=== PATIENT | male | born 1945 | race Caucasian/White ===

== ENCOUNTER 2019-10-07 23:26 | Emergency (ER) | payer MEDICARE, BC ==
[2019-10-08] MEDS ORDERED: Lidocaine 1% 10 ML MDV INJECT ONE (00:25)
[2019-10-08] MEDS ORDERED: Lidocaine 1% 10 ML MDV ONE (00:42)
--- NOTE | 2019-10-08 01:39 | EDM.PDOC ---
ED HPI GENERAL MEDICAL PROBLEM - General Chief Complaint: Laceration Stated Complaint: LACERATION Time Seen by Provider: 10/07/19 23:37 Source of Information: Reports: Patient, Other (Referring facility) History Limitations: Reports: No Limitations - History of Present Illness INITIAL COMMENTS - FREE TEXT/NARRATIVE: TRIAGE NOTE -- Pt presents to ER from [place] [facility] for laceration repair to left sanchez. Pt reports cutting leg on metal. Last Tdap 2019 As above. Patient was coming down a ladder and his anterior left leg came in contact with a sharp piece of metal causing a laceration about 4 inches long. Anterior left leg. Risk factors consist of chronic anticoagulation but bleeding has been frankly minimal. Patient received 2 g of Ancef IV prior to coming to this hospital by POV. At my request the wound had a sterile wet normal saline dressing placed. Patient has had no fever or any other symptom of acute medical illness. He denies any substantial discomfort though he seems to be something of a stoic individual. - Related Data Allergies Allergy/AdvReac Type Severity Reaction Status Date / Time prednisone Allergy Severe Change Verified 10/08/19 00:12 Mental Status Home Meds: Home Meds Albuterol Sulfate [Albuterol Sulfate Hfa] 2 puff INH BID 10/08/19 [History] Apixaban [Eliquis] 1 tab PO BID 10/08/19 [History] Aspirin 1 tab PO DAILY 10/08/19 [History] Fluticasone Propion/Salmeterol [Fluticasone-Salmeterol 250-50] 1 puff INH BID [History] Levothyroxine Sodium [Synthroid] 1 tab PO DAILY 10/08/19 [History] PEG 400/Hypromellose/Glycerin [Eye Drop Tears] 2 drop EYEBOTH BID PRN 10/08/19 [ History] Sulfamethoxazole/Trimethoprim [Bactrim Ds Tablet] 1 each PO BID #20 tablet 10/07 [Rx] atorvaSTATin Calcium [Atorvastatin Calcium] 1 tab PO DAILY 10/08/19 [History] cephALEXin [Keflex] 500 mg PO QID #40 capsule 10/08/19 [Rx] lisinopriL [Lisinopril] 1 tab PO DAILY 10/08/19 [History] Past Medical History HEENT History: Reports: Cataract, Other (See Below) Other HEENT History: reading glasses Cardiovascular History: Reports: High Cholesterol, Hypertension, Stents Respiratory History: Reports: COPD Musculoskeletal History: Reports: Arthritis Endocrine/Metabolic History: Reports: Hyperthyroidism - Past Surgical History HEENT Surgical History: Reports: Cataract Surgery Cardiovascular Surgical History: Reports: Coronary Artery Stent Other Cardiovascular Surgeries/Procedures: 1 stent 2013 Endocrine Surgical History: Reports: Thyroidectomy Musculoskeletal Surgical History: Reports: Arthroscopic Knee Social & Family History - Family History Family Medical History: Noncontributory - Tobacco Use Smoking Status *Q: Former Smoker Used Tobacco, but Quit: Yes Month/Year Tobacco Last Used: 05/2001 - Caffeine Use Caffeine Use: Reports: Coffee - Recreational Drug Use Recreational Drug Use: No ED ROS GENERAL - Review of Systems Review Of Systems: Comprehensive ROS is negative, except as noted in HPI. ED EXAM, SKIN/RASH Exam: See Below Exam Limited By: No Limitations General Appearance: Alert, WD/WN, No Apparent Distress Eye Exam: Bilateral Eye: EOMI, PERRL Ears: Normal External Exam Nose: Normal Inspection Throat/Mouth: Normal Inspection Head: Atraumatic, Normocephalic Neck: Normal Inspection, Supple Respiratory/Chest: No Respiratory Distress, Lungs Clear, Normal Breath Sounds Cardiovascular: Regular Rate, Rhythm, No Edema GI/Abdominal: Soft, Non-Tender Back Exam: Normal Inspection Extremities: Normal Inspection (Except as noted) Neurological: Alert, Oriented, Normal Cognition, No Motor/Sensory Deficits Psychiatric: Normal Affect, Normal Mood Skin: Warm, Dry, Intact (Except as described below) Comments: There is a deep longitudinal laceration anterior left leg. About 11 cm overall dimension. Site is about mcfp between ankle and knee. Wound is gaping to a certain extent. Anterior compartment muscles are visible. Good motor function is observed. Neurovascular tendon is intact. Minimal bleeding. No contamination. No foreign body. Deep fascia appears a bit ragged and fragmented. There is slight fraying of the anterior compartment muscles but otherwise intact. Course - Vital Signs Last Recorded V/S: Last Vital Signs Temp 36.6 C 10/07/19 23:33 Pulse 92 10/07/19 23:33 Resp 20 10/07/19 23:33 BP 159/99 H 10/07/19 23:33 Pulse Ox 95 10/07/19 23:33 - Orders/Labs/Meds Orders: Active Orders 24 hr Category Date Time Status CBC WITH MANUAL DIFF [HEME] Stat Lab 10/08/19 01:59 Results Labs: Laboratory Tests 10/08/19 10/08/19 Range/Units 01:59 01:59 WBC 10.15 H (4.23-9.07) K/mm3 RBC 3.83 L (4.63-6.08) M/mm3 Hgb 12.2 L (13.7-17.5) gm/dl Hct 39.3 L (40.1-51.0) % MCV 102.6 H (79.0-92.2) fl MCH 31.9 (25.7-32.2) pg MCHC 31.0 L (32.2-35.5) g/dl RDW Std Deviation 48.3 H (35.1-43.9) fL Plt Count 244 (163-337) K/mm3 MPV 9.2 L (9.4-12.3) fl Sodium 143 (136-145) mEq/L Potassium 4.1 (3.5-5.1) mEq/L Chloride 107 (98-107) mEq/L Carbon Dioxide 30 (21-32) mEq/L Anion Gap 10.1 (5-15) BUN 20 H (7-18) mg/dL Creatinine 1.3 (0.7-1.3) mg/dL Est Cr Clr Drug Dosing 53.06 mL/min Estimated GFR (MDRD) 54 (>60) mL/min BUN/Creatinine Ratio 15.4 (14-18) Glucose 96 (83-115) mg/dL Calcium 9.0 (8.5-10.1) mg/dL Total Bilirubin 0.7 (0.2-1.0) mg/dL AST 24 (15-37) U/L ALT 26 (16-63) U/L Alkaline Phosphatase 83 (46-116) U/L Total Protein 7.1 (6.4-8.2) g/dl Albumin 3.8 (3.4-5.0) g/dl Globulin 3.3 gm/dL Albumin/Globulin Ratio 1.2 (1-2) Meds: Medications Discontinued Medications Generic Name Dose Route Start Last Admin Trade Name Freq PRN Reason Stop Dose Admin Vancomycin HCl 1 gm/ Sodium 250 mls @ 250 mls/hr 10/08/19 01:31 10/08/19 01: 43 Chloride IV 10/08/19 02:30 250 mls/hr ONETIME ONE Administration Lidocaine HCl 10 ml 10/08/19 00:25 10/08/19 00:47 Xylocaine 1% INJECT 10/08/19 00:26 10 ml ONETIME ONE Administration Lidocaine HCl Confirm 10/08/19 00:42 10/08/19 02:04 Xylocaine 1% Administered 10/08/19 00:43 Not Given Dose 10 ml .ROUTE .[facility] ONE - Re-Assessments/Exams Free Text/Narrative Re-Assessment/Exam: 10/08/19 01:39 After evaluation the findings were discussed with on-call surgeon Dr. Alfaro. Closure of skin recommended and this was done. Ro would have been preferred but we did not have any large skin ro available so the wound was closed with 2-0 Prolene simple interrupted sutures 17 and all. Local anesthesia with 10 mL of 1% plain lidocaine. The wound was irrigated with copious amounts of normal saline. Sterile technique. Patient tolerated well. No complications. Discussed fully with patient and his at bedside. Patient does not live in the local area. There is concern that he needs close follow-up of this wound. He is to keep the leg elevated. See antibiotics prescribed. He has received Ancef at the previous facility about 4 hours ago and will receive a gram of vancomycin here prior to departure. Departure - Departure Time of Disposition: 01:44 Disposition: Home, Self-Care 01 Condition: Good Clinical Impression: Laceration of leg not thigh, left Qualifiers: Encounter type: initial encounter Qualified Code(s): S81.812A - Laceration without foreign body, left lower leg, initial encounter - Discharge Information *PRESCRIPTION DRUG MONITORING PROGRAM REVIEWED*: Not Applicable *COPY OF PRESCRIPTION DRUG MONITORING REPORT IN PATIENT CHASTITY: Not Applicable Prescriptions: cephALEXin [Keflex] 500 mg PO QID #40 capsule Sulfamethoxazole/Trimethoprim [Bactrim Ds Tablet] 1 each PO BID #20 tablet Referrals: PCP,None [Primary Care Provider] - Forms: ED Department Discharge Additional Instructions: You have been seen for a deep laceration of your left leg. It was sutured in the emergency department as you know. You have received Ancef in the original facility and we have given you a dose of vancomycin here. You are being discharged on 2 antibiotics. It is important that you keep the leg elevated. You need to be seen in 2 days by orthopedist litigation coordinator and that information is being given to you by nursing staff. If there is any problem getting local follow-up return to the ER. For any fever redness swelling or discomfort in the area return to ER immediately. A dry dressing needs to be placed on the wound on a daily basis. Sepsis Event Note - Evaluation Sepsis Screening Result: No Definite Risk - Focused Exam Vital Signs: Vital Signs Temp Pulse Resp BP Pulse Ox 10/07/19 23:33 36.6 C 92 20 159/99 H 95 Date Exam was Performed: 10/08/19 Time Exam was Performed: 02:47 - My Orders Last 24 Hours: My Active Orders 10/08/19 01:59 CBC WITH MANUAL DIFF [HEME] Stat - Assessment/Plan Last 24 Hours: My Active Orders 10/08/19 01:59 CBC WITH MANUAL DIFF [HEME] Stat
== END 2019-10-08 03:05 | disposition home or self-care (01) ==
LOC: JD.ED 23:26
DX: S81.812A Laceration without foreign body, left lower leg, initial encounter (principal); I10 Essential (primary) hypertension; E78.00 Pure hypercholesterolemia, unspecified; J44.9 Chronic obstructive pulmonary disease, unspecified; E05.90 Thyrotoxicosis, unspecified without thyrotoxic crisis or storm; Z87.891 Personal history of nicotine dependence; Z88.8 Allergy status to other drugs, medicaments and biological substances; Z79.82 Long term (current) use of aspirin; Z79.899 Other long term (current) drug therapy; Z95.5 Presence of coronary angioplasty implant and graft; W26.9XXA Contact with unspecified sharp object(s), initial encounter
CPT/HCPCS: 12004; 36415; 80053; 85007; 85027; 96365; 99283; J2001; J3370; J7050; 12034; 99282